=== PATIENT | male | born 1975 | race Hispanic/Latino ===

== ENCOUNTER 2015-11-27 10:38 | Outpatient (RCR) | payer SELFPAY ==
--- OUTSIDE RECORDS SUMMARY | 2015-11-27 10:41 | XMS REPORT | Continuity of Care Document ---
Author Author [facility] Organization [facility] Address Unknown Phone Unavailable Care Team Providers Care Trust Operations Assistant Name Role Phone NO, LOCAL PHYSICIAN PCP Unavailable Insurance Providers Payer Name Policy Number Subscriber Name Relationship Self Pay Ronny Garza 17 Self / Same As Patient Problems No problem information available. Medications No medication information available. Social History Social History Problem Response Recorded Date/Time Recent Foreign Travel No 08/28/2015 10:50am Hospital Discharge Instructions No hospital discharge instructions. Plan of Care Prescriptions See Medication Section Functional Status No functional status results. Allergies, Adverse Reactions, Alerts No allergy information available. Immunizations No immunization records. Vital Signs No known vital signs results. Results No known relevant diagnostic tests, laboratory data and/or discharge summary. Procedures No known history of procedures. Encounters Encounter Location Arrival/Admit Date Discharge/Depart Date Attending Provider Discharged Recurring [facility] 08/28/15 10:58am 11:24am SHO BANUELOS
== END 2016-02-25 | disposition home or self-care (01) ==
LOC: LAB 10:38
PROVIDERS: ATTEND Nurse Practitioner Adult Health
DX: Z31.69 Encounter for other general counseling and advice on procreation (principal)
CPT/HCPCS: 89320